=== PATIENT | female | born 1980 | race African-American/Black ===

== ENCOUNTER 2016-10-18 11:59 | Emergency (ER) | payer MEDICAID ==
[~2016-10-18] VITALS: Ht 166.4 cm; Wt 67.6 kg
[2016-10-18 12:44] VITALS: BP 124/83
--- NOTE | 2016-10-18 13:34 | NUR ---
PT COMES TO ER WITH C/O LOWER ABDOMINAL PAIN X1 DAY WITH NAUSEA. NEG [place]. DENIES ANY FEVERS/CHILLS. ALSO REPORTS LEFT KNEE PAIN X 2 DAYS, DENIES INJURY. NO BRUSING OR TRAUMA NOTED . +CMS.
[2016-10-18] MEDS ORDERED: KETOROLAC 60 MG/2 ML VIAL IM ONE (14:10)
--- NOTE | 2016-10-18 14:55 | NUR ---
PT BACK FROM US AND XRAY
--- NOTE | 2016-10-18 15:18 | NUR ---
PT CRYING AND C/O LEFT ARM PAIN S/P IM INJECTION. NO REDNESS OR SWELLING NOTED. ADVUSED TO PUT WARM COMPRESS OVER LEFT DELTOID. PT REPORTS SHE NO LONGER HAD LEFT KNEE OR ABDOMINAL PAIN, BUT NOW ONLY LEFT ARM PAIN.
--- NOTE | 2016-10-18 15:40 | NUR ---
PT REPORTS FEELING BETTER FROM HER ARM. WAITING FOR MD RE-EVAL
[2016-10-18 15:51] VITALS: BP 116/77
--- NOTE | 2016-10-18 15:53 | NUR ---
Patient discharged with v/s stable. Written and verbal after care instructions given and explained. Patient alert, oriented and verbalized understanding of instructions. Ambulatory with steady gait. All questions addressed prior to discharge. ID band removed. Patient advised to follow up with PMD. Rx of TRAMADOL, MOTRIN given. Patient educated on indication of medication including possible reaction and side effects. Opportunity to ask questions provided and answered.
== END 2016-10-18 15:53 | disposition home or self-care (01) ==
LOC: MED 11:59
DX: S83.92XA Sprain of unspecified site of left knee, initial encounter (principal); D25.9 Leiomyoma of uterus, unspecified; X58.XXXA Exposure to other specified factors, initial encounter; Y93.89 Activity, other specified; Y92.89 Other specified places as the place of occurrence of the external cause; Y99.8 Other external cause status
CPT/HCPCS: 73562; 76856; 81025; 82948; 96372; 99284; J1885; Q0092